=== PATIENT | male | born 1970 | race Caucasian/White ===

== ENCOUNTER 2023-09-07 06:50 | Day surgery (SDC) | payer MEDICAID ==
[~2023-09-07] VITALS: Ht 182.9 cm; Wt 97.5 kg
[2023-09-07] VITALS (12 sets, daily range): BP systolic 114–185; BP diastolic 73–121; PULSE 55–70; RESP 15–20
[~2023-09-07 06:50] MED LIST: METO-391 PO
[2023-09-07] MEDS: 0.9%NACL 1000ML 1,000 ML IV ONE (09:14)
[2023-09-07] MEDS ORDERED: PROPOFOL 10 MG/ML 20ML VIAL IV ONE (10:08)
== END 2023-09-07 11:50 | disposition home or self-care (01) ==
LOC: ENDO 06:50 → DAH 06:50 → ENDO 11:50
PROVIDERS: ATTEND Internal Medicine Gastroenterology
DX: R93.3 Abnormal findings on diagnostic imaging of other parts of digestive tract (principal); R10.12 Left upper quadrant pain; K80.20 Calculus of gallbladder without cholecystitis without obstruction; K85.90 Acute pancreatitis without necrosis or infection, unspecified; K29.70 Gastritis, unspecified, without bleeding; I10 Essential (primary) hypertension; M19.90 Unspecified osteoarthritis, unspecified site; Z96.653 Presence of artificial knee joint, bilateral; Z80.0 Family history of malignant neoplasm of digestive organs; Z87.891 Personal history of nicotine dependence
CPT/HCPCS: 43237; 43239; J7030; J3490; A4620; A4215 ×2; A4223; A4222; A4221; A4663; A4606; J2704

== ENCOUNTER 2023-09-29 06:48 | Day surgery (SDC) | payer MEDICAID ==
[2023-09-27 12:44] LABS: BASOPHILS # (AUTO) 0.05 K/uL (0.00-0.20); BASOPHILS % (AUTO) 0.5 % (0.0-5.0); EOSINOPHILS # (AUTO) 0.28 K/uL (0.00-0.70); EOSINOPHILS % (AUTO) 2.7 % (0.0-8.0); HEMATOCRIT 47.1 % (42-54); IMMATURE GRANULOCYTE ABSOLUTE 0.04 K/uL (0-1); LYMPHOCYTES # (AUTO) 3.5 K/uL (1.0-4.8); LYMPHOCYTES % (AUTO) 32.9 % (21.0-51.0); MEAN CORPUSCULAR HEMOGLOBIN 30.1 pg (27.0-33.0); MEAN CORPUSCULAR HGB CONC 33.5 g/dL (32.0-36.0); MEAN CORPUSCULAR VOLUME 89.7 fL (79-99); MONOCYTES # (AUTO) 0.6 K/uL (0.1-1.0); MONOCYTES % (AUTO) 5.8 % (3.0-13.0); NEUTROPHILS # (AUTO) 6.1 K/uL (1.8-7.7); NEUTROPHILS % (AUTO) 57.7 % (40.0-77.0); PLATELET COUNT (AUTO) 210 K/uL (130-400); RED BLOOD CELL COUNT(AUTO) 5.25 MIL/uL (4.50-6.20); RED CELL DISTRIBUTION WIDTH 12.8 % (11.0-15.5); WHITE BLOOD COUNT (AUTO) 10.5 K/uL (4.8-10.8)
[2023-09-27 12:55] LABS: CREATININE 0.9 mg/dL (0.5-1.3); POTASSIUM 4.3 mmol/L (3.5-5.1)
[2023-09-27 13:05] VITALS: BP 154/92; PULSE 56; RESP 18
[2023-09-29] VITALS (18 sets, daily range): BP systolic 155–184; BP diastolic 83–112; PULSE 58–67; RESP 15–18
[~2023-09-29] VITALS: Ht 182.9 cm; Wt 97.5 kg
[2023-09-29] MEDS ORDERED: ROCURONIUM BROMIDE 10MG/1ML 5ML VL ONE (08:17)
[2023-09-29] MEDS ORDERED: PROPOFOL 10 MG/ML 20ML VIAL IV ONE (08:17)
[2023-09-29] MEDS ORDERED: FENTANYL CITRATE PF 50 MCG/1 ML 2ML VIAL ONE (08:17)
[2023-09-29] MEDS ORDERED: LIDOCAINE PF 100MG/5ML (2%) SYRINGE 5ML ONE (08:17)
[2023-09-29] MEDS: CEFAZOLIN SODIUM 2 GM VIAL ONE (08:41)
[2023-09-29] MEDS: LACTATED RINGERS 1000ML 1,000 ML IV ONE (08:41)
[2023-09-29] MEDS: METRONIDAZOLE 500MG/100ML BAG 0 ML ONE (08:42)
[2023-09-29] MEDS ORDERED: ACETAMINOPHEN 1,000 MG/100 ML VIAL IV ONE (09:48)
[2023-09-29] MEDS ORDERED: FAMOTIDINE 20MG VIAL IV ONE (09:49)
[2023-09-29] MEDS ORDERED: INDOCYANINE GREEN 25 MG VIAL IJ ONE (09:55)
[2023-09-29] MEDS ORDERED: ONDANSETRON 4MG INJ ONE (10:15)
[2023-09-29] MEDS ORDERED: DEXAMETHASONE SOD PHOSPHATE 10MG/ML 1ML VIAL ONE (10:15)
[2023-09-29] MEDS ORDERED: NEOSTIGMINE METHYLSULFATE 1MG/ML IV ONE (10:31)
[2023-09-29] MEDS ORDERED: GLYCOPYRROLATE 0.2 MG/ML 5 ML VIAL ONE (10:31)
[2023-09-29] MEDS: BUPIVACAINE/PF 0.25% 30ML VIAL IJ ONE (10:32)
[2023-09-29] MEDS: MEPERIDINE-PF 25 MG/ML SYG ONE (11:51)
[2023-09-29] MEDS: HYDRALAZINE 20MG/ML VIAL ONE (12:19)
== END 2023-09-29 13:35 | disposition home or self-care (01) ==
LOC: DAH 06:48
PROVIDERS: ATTEND Surgery
DX: K80.10 Calculus of gallbladder with chronic cholecystitis without obstruction (principal); I10 Essential (primary) hypertension; M19.90 Unspecified osteoarthritis, unspecified site; F17.210 Nicotine dependence, cigarettes, uncomplicated; Z96.653 Presence of artificial knee joint, bilateral; Z79.899 Other long term (current) drug therapy
CPT/HCPCS: 47563; S2900; 36415; 80048; 85025; 86850; 86900; 86901; 88304; 93005; J0360; J1100; J2001; J2175; J2405; J2704; J2710; J3010; J3490; J7030; J7120; A4215; A4221; A4222; A4223; A4600; A4663; A6260; G0168; J0665; J0690